=== PATIENT | male | born 1985 | race Caucasian/White ===

== ENCOUNTER 2016-12-21 14:59 | Emergency (ER) | payer MEDICAID ==
[2016-12-21] MEDS ORDERED: TRILEPTAL (15:23)
[2016-12-21] MEDS ORDERED: ABILIFY (15:23)
== END 2016-12-21 16:09 ==
LOC: EDMED 14:59
PROC: 0CJS8ZZ Inspection of Larynx, Via Natural or Artificial Opening Endoscopic (ICD-10-PCS; principal; 2016-12-21)
DX: M54.2 Cervicalgia (principal); Z90.89 Acquired absence of other organs; F31.9 Bipolar disorder, unspecified; F41.9 Anxiety disorder, unspecified; Z79.899 Other long term (current) drug therapy; T17.228A Food in pharynx causing other injury, initial encounter; X58.XXXA Exposure to other specified factors, initial encounter